=== PATIENT | female | born 1955 | race Two or more races ===

== ENCOUNTER 2023-08-06 07:28 | Day surgery (SDC) | payer OTHER ==
[2023-08-06] MEDS ORDERED: fentaNYL CITRATE 50 MCG/ML AMPUL IV ONE (12:00)
[2023-08-06] MEDS ORDERED: DIPHENHYDRAMINE HCL 50 MG/ML VIAL 1ML IV ONE (12:00)
[2023-08-06] MEDS ORDERED: MIDAZOLAM HCL 2 MG/2 ML VIAL IV ONE (12:00)
== END 2023-08-06 14:05 | disposition home or self-care (01) ==
LOC: AMB-ENDOS 07:28
PROVIDERS: ATTEND Surgery
DX: K57.30 Diverticulosis of large intestine without perforation or abscess without bleeding (principal); K64.8 Other hemorrhoids